=== PATIENT | female | born 2005 | race African-American/Black ===

== ENCOUNTER 2024-11-19 16:05 | Emergency (ER) | payer MEDICAID, OTHER ==
[2024-11-19] MEDS ORDERED: Dexamethasone 10 MG/ML VIAL ONE (16:33)
[2024-11-19] MEDS ORDERED: Ibuprofen 200 MG TAB ONE (16:33)
== END 2024-11-19 17:37 | disposition home or self-care (01) ==
LOC: CSHERS 16:05
DX: B34.9 Viral infection, unspecified (principal)
CPT/HCPCS: 87081; 87428; 87430; 99283; J1100

== ENCOUNTER 2025-11-03 08:24 | Emergency (ER) | payer BC, MEDICAID | END 2025-11-03 10:07 | disposition home or self-care (01) | LOC: CSHERS 08:24 | DX: J39.9 Disease of upper respiratory tract, unspecified (principal) | CPT/HCPCS: 87428; 99283 ==